=== PATIENT | male | born 1975 | race African-American/Black ===

== ENCOUNTER 2023-03-07 14:22 | Emergency (ER) | payer OTHER ==
[~2023-03-07] VITALS: Ht 180.3 cm; Wt 110.0 kg
[2023-03-07 14:24] VITALS: O2SAT 99
[2023-03-07 15:11] VITALS: BP 140/62; PULSE 100; RESP 18; TEMP 98.8
== END 2023-03-07 15:12 | disposition home or self-care (01) ==
LOC: ER 14:54
DX: R68.89 Other general symptoms and signs (principal); I10 Essential (primary) hypertension
CPT/HCPCS: 99283